=== PATIENT | female | born 1960 | race Two or more races ===

== ENCOUNTER 2024-03-23 08:03 | Day surgery (SDC) | payer OTHER ==
[2024-03-18 13:19] VITALS: BP 131/84
[~2024-03-23] VITALS: Ht 165.1 cm; Wt 76.7 kg
[~2024-03-23 08:03] MED LIST: BUSPIRONE HCL7.5 MG; COLAGENO; MAGNESIUM100 MG; OMEGA 3-6-9 11200 M1; [UNRECOGNIZED DRUG - OTHER]; [UNRECOGNIZED DRUG - OTHER]
[2024-03-23] MEDS ORDERED: IBU600 MG PO (13:21)
[2024-03-23] MEDS ORDERED: ONDANSETRON HCL 2 MG/ML VIAL IV ONE (13:30)
[2024-03-23] MEDS ORDERED: POVIDONE-IODINE 118 ML BOTT TOP ONE (13:45)
[2024-03-23] MEDS ORDERED: CHLORHEXIDINE GLUCONATE 120 ML BOTTLE TOP ONE (13:45)
== END 2024-03-23 17:20 | disposition home or self-care (01) ==
LOC: CIR.AMB 08:03
PROVIDERS: ATTEND Obstetrics & Gynecology Gynecology
DX: N84.0 Polyp of corpus uteri (principal); Z88.2 Allergy status to sulfonamides; Z91.013 Allergy to seafood